=== PATIENT | male | born 1960 | race Caucasian/White ===

== ENCOUNTER 2017-02-06 12:28 | Emergency (ER) | payer MEDICARE, OTHER ==
[2017-02-06 14:48] LABS: HEMOGLOBIN 11.2 gm/dl (14.0-17.5); RED BLOOD COUNT 3.57 M/UL (4.20-5.50); WHITE BLOOD COUNT 6.9 K/UL (4.5-11.0)
[2017-02-07] MEDS ORDERED: NEURONTIN 400400 MG PO (08:07)
[2017-02-07] MEDS ORDERED: NORCO 10-325 T1 EACH PO (08:07)
[2017-02-07] MEDS ORDERED: ASPIRIN325 MG PO (08:08)
[2017-02-07] MEDS ORDERED: NORVASC 5 MG TAB5 MG PO (08:08)
[2017-02-07] MEDS ORDERED: CARVEDILOL12.5 MG PO (08:10)
[2017-02-07] MEDS ORDERED: CITALOPRAM HBR40 MG PO (08:10)
[2017-02-07] MEDS ORDERED: PLAVIX 75 MG TA75 MG PO (08:11)
[2017-02-07] MEDS ORDERED: CATAPRES 0.1MG0.1 MG PO (08:11)
[2017-02-07] MEDS ORDERED: LOPID TAB 600600 MG PO (08:12)
[2017-02-07] MEDS ORDERED: LASIX 40 MG TAB40 MG PO (08:12)
[2017-02-07] MEDS ORDERED: COLACE 100MG C100 MG PO (08:12)
[2017-02-07] MEDS ORDERED: HYDRALAZINE HCL50 MG PO (08:13)
[2017-02-07] MEDS ORDERED: GLUCOTROL 10 MG10 MG PO (08:13)
[2017-02-07] MEDS ORDERED: ISOSORBIDE MONO60 MG PO (08:14)
[2017-02-07] MEDS ORDERED: ZESTRIL10 MG PO (08:15)
[2017-02-07] MEDS ORDERED: OMEPRAZOLE20 MG PO (08:15)
[2017-02-07] MEDS ORDERED: RENO CAPS SOFTGE1 MG PO (08:16)
[2017-02-07] MEDS ORDERED: RENVELA800 MG PO (08:16)
[2017-02-07] MEDS ORDERED: SIMVASTATIN20 MG PO (08:17)
[2017-02-07] MEDS ORDERED: MIRTAZAPINE15 MG PO (08:18)
== END 2017-02-06 23:40 | disposition home or self-care (01) ==
LOC: ER1 12:28
PROVIDERS: Emergency Medicine
DX: T82.868A Thrombosis due to vascular prosthetic devices, implants and grafts, initial encounter (principal); I12.0 Hypertensive chronic kidney disease with stage 5 chronic kidney disease or end stage renal disease; E11.22 Type 2 diabetes mellitus with diabetic chronic kidney disease; N18.6 End stage renal disease; D64.9 Anemia, unspecified; E87.1 Hypo-osmolality and hyponatremia; M79.89 Other specified soft tissue disorders; M79.602 Pain in left arm
CPT/HCPCS: 36415; 80048; 85025; 85610; 85730; 86140; 93971; 99283

== ENCOUNTER → 2017-02-07 | Day surgery (SDC) | payer MEDICARE, OTHER ==
[~2017-02-07] MED LIST: ASPIRIN325 MG PO; CARVEDILOL12.5 MG PO; CATAPRES 0.1MG0.1 MG PO; CITALOPRAM HBR40 MG PO; COLACE 100MG C100 MG PO; GLUCOTROL 10 MG10 MG PO; HYDRALAZINE HCL50 MG PO; ISOSORBIDE MONO60 MG PO; LASIX 40 MG TAB40 MG PO; LOPID TAB 600600 MG PO; MIRTAZAPINE15 MG PO; NEURONTIN 400400 MG PO; NORCO 10-325 T1 EACH PO; NORVASC 5 MG TAB5 MG PO; OMEPRAZOLE20 MG PO; PLAVIX 75 MG TA75 MG PO; RENO CAPS SOFTGE1 MG PO; RENVELA800 MG PO; SIMVASTATIN20 MG PO; ZESTRIL10 MG PO
== END | disposition home or self-care (01) ==
LOC: OR 07:24
PROVIDERS: Surgery
PROC: B513YZA Fluoroscopy of Right Jugular Veins using Other Contrast, Guidance (ICD-10-PCS; 2017-02-07)
PROC: 05HM33Z Insertion of Infusion Device into Right Internal Jugular Vein, Percutaneous Approach (ICD-10-PCS; principal; 2017-02-07 09:35)
DX: E11.22 Type 2 diabetes mellitus with diabetic chronic kidney disease (principal); I12.0 Hypertensive chronic kidney disease with stage 5 chronic kidney disease or end stage renal disease; N18.6 End stage renal disease; I25.10 Atherosclerotic heart disease of native coronary artery without angina pectoris; K21.9 Gastro-esophageal reflux disease without esophagitis; F41.9 Anxiety disorder, unspecified; F32.9 Major depressive disorder, single episode, unspecified; F17.210 Nicotine dependence, cigarettes, uncomplicated; Z79.82 Long term (current) use of aspirin; Z79.899 Other long term (current) drug therapy; Z98.890 Other specified postprocedural states
CPT/HCPCS: 71010; 77001; 82962; C1752; C1769; J0690; J1644; J3370; J7030; J7120

== ENCOUNTER → 2020-12-06 | Outpatient (CLI) | payer MEDICARE, OTHER ==
[~2020-12-06] MED LIST changes: +ALDACTONE 25MG25 MG PO; +COMBIVENT RESPIM4 GM INH; +KEFLEX500 MG PO; +LEVEMIR FL100 UNIT/1 SQ; +LIPITOR40 MG PO; +MUPIROCIN22 GM TP; -NEURONTIN 400400 MG PO; +NEURONTIN100 MG PO; -NORCO 10-325 T1 EACH PO; +NORCO 7.5-3251 EACH PO; +REMERON15 MG PO
== END ==
LOC: CT 12:34
DX: R05 Cough (principal); I51.7 Cardiomegaly; J90 Pleural effusion, not elsewhere classified; K80.80 Other cholelithiasis without obstruction; R18.8 Other ascites
CPT/HCPCS: 71250; Q9963

== ENCOUNTER → 2021-02-02 | Outpatient (CLI) | payer MEDICARE, OTHER | LOC: HEART 5 10:47 | DX: R05 Cough (principal); R06.2 Wheezing | CPT/HCPCS: 94060; 94729 ==

== ENCOUNTER 2021-07-10 10:20 | Observation (INO) | payer MEDICARE, OTHER ==
[~2021-07-10] VITALS: Ht 177.8 cm; Wt 87.0 kg
[2021-07-10 10:53] LABS: HEMOGLOBIN 9.7 gm/dl (14.0-17.5); RED BLOOD COUNT 3.27 M/UL (4.20-5.50); WHITE BLOOD COUNT 8.6 K/UL (4.5-11.0)
[2021-07-10] MEDS ORDERED: FUROSEMIDE40 MG PO (14:56)
[2021-07-10] MEDS ORDERED: CRESTOR 10 MG T10 MG PO (15:03)
[2021-07-10] MEDS ORDERED: ANORO ELLIPTA1 EACH INH (15:05)
[2021-07-11 08:34] LABS: HEMOGLOBIN 9.8 gm/dl (14.0-17.5); RED BLOOD COUNT 3.3 M/UL (4.20-5.50)
[2021-07-11 08:42] LABS: WHITE BLOOD COUNT 12.2 K/UL (4.5-11.0)
[2021-07-12 03:24] LABS: HEMOGLOBIN 8.5 gm/dl (14.0-17.5)
[2021-07-12 03:35] LABS: RED BLOOD COUNT 2.88 M/UL (4.20-5.50); WHITE BLOOD COUNT 9.1 K/UL (4.5-11.0)
[2021-07-12 09:14] LABS: HBSAG SCREEN Negative (Negative); HEP B CORE AB, TOT Negative (Negative); HEP C VIRUS AB 0.1 (0.0-0.9)
--- NOTE | 2021-07-12 19:10 | NUR ---
CANNOT ASSESS PATIENT AT THIS TIME D/T PT BEING AT DIALYSIS.
--- NOTE | 2021-07-12 20:18 | NUR ---
PATIENT ON FLOR[facility] AT 2014. VITALS LEAVING DIALYSIS WERE REPORTED TO BE 122/66, HR 81, TEMP 98.5, RR 17. VITALS UPON ARRIVAL TO FLOOR, BP 113/72 (82), HR 84, 19 RR, 98.6 TEMP, O2 100%. MD AWARE OF PATIENT DISCHARGE AFTER DIALYSIS. PATIENT WILL BE EDUCATED AND WILL CALL FAMILY.
--- NOTE | 2021-07-12 21:58 | NUR ---
PATIENT LEFT FLOOR WITH STAFF TO MEET FAMILY IN ER AT 2130. VITALS UPON LEAVING WERE HR 82, O2 100% ON RA, RR 20, BP 113/73 (82) AND 98.5 TEMP.
== END 2021-07-12 21:30 | disposition home or self-care (01) ==
LOC: ER1 10:20 → PROG CARE 12:03 → CDU 12:03 → PROG CARE 14:41
PROVIDERS: Family Medicine; Internal Medicine; Internal Medicine Nephrology; Physician Assistant Medical; ADMIT Internal Medicine
DX: E11.649 Type 2 diabetes mellitus with hypoglycemia without coma (principal); J81.1 Chronic pulmonary edema; E87.70 Fluid overload, unspecified; E11.22 Type 2 diabetes mellitus with diabetic chronic kidney disease; N18.6 End stage renal disease; D63.1 Anemia in chronic kidney disease; N25.81 Secondary hyperparathyroidism of renal origin; I25.10 Atherosclerotic heart disease of native coronary artery without angina pectoris; I25.5 Ischemic cardiomyopathy; F17.210 Nicotine dependence, cigarettes, uncomplicated; K21.9 Gastro-esophageal reflux disease without esophagitis; Z95.1 Presence of aortocoronary bypass graft; Z99.2 Dependence on renal dialysis; Z79.4 Long term (current) use of insulin; Z79.02 Long term (current) use of antithrombotics/antiplatelets; Z79.82 Long term (current) use of aspirin; Z79.899 Other long term (current) drug therapy; Z20.822 Contact with and (suspected) exposure to COVID-19
CPT/HCPCS: ECHO; 36415; 36600; 70450; 71045; 80048; 80053; 82009; 82550; 82553; 82803; 82962; 83540; 83550; 83735; 83874; 83880; 84100; 84484; 85025; 85027; 86704; 86706; 86708; 86803; 87040; 87340; 90935; 90937; 93005; 93306; 94640; 94664; 94760; 96365; 96366; 96374; 96375; 96376; 99285; C9113; G0378; J1335; J1940; J2405; J2543; J2550; J2765; P9047; U0002

== ENCOUNTER → 2021-07-25 | Outpatient (CLI) | payer MEDICARE, OTHER ==
[~2021-07-25] MED LIST changes: +ANORO ELLIPTA1 EACH INH; +CRESTOR 10 MG T10 MG PO; +FUROSEMIDE40 MG PO
== END ==
LOC: KOH-I 08:00
DX: R18.8 Other ascites (principal)
CPT/HCPCS: 76705

== ENCOUNTER 2021-10-02 15:20 | Observation (INO) | payer MEDICARE, OTHER ==
[~2021-10-02] VITALS: Ht 177.8 cm; Wt 83.9 kg
[2021-10-02 16:28] LABS: HEMOGLOBIN 9.1 gm/dl (14.0-17.5); RED BLOOD COUNT 2.91 M/UL (4.20-5.50); WHITE BLOOD COUNT 7.2 K/UL (4.5-11.0)
[2021-10-02 20:48] LABS: HEMOGLOBIN 7.5 gm/dl (14.0-17.5)
[2021-10-03 06:15] LABS: HEMOGLOBIN 10.8 gm/dl (14.0-17.5)
[2021-10-03] MEDS ORDERED: ZOFRAN ODT 4 MG4 MG SL (06:56)
[2021-10-03 10:23] LABS: HEMOGLOBIN 10.9 gm/dl (14.0-17.5); WHITE BLOOD COUNT 8.3 K/UL (4.5-11.0)
[2021-10-03 10:24] LABS: RED BLOOD COUNT 3.56 M/UL (4.20-5.50)
[2021-10-03] MEDS ORDERED: ASPIRIN81 MG PO (13:54)
[2021-10-03] MEDS ORDERED: PROTONIX 40 MG40 M1 PO (13:54)
[2021-10-03] MEDS ORDERED: METOPROLOL TART25 MG PO (13:55)
[2021-10-04 09:26] LABS: HEMOGLOBIN 11.3 gm/dl (14.0-17.5); RED BLOOD COUNT 3.64 M/UL (4.20-5.50); WHITE BLOOD COUNT 10.4 K/UL (4.5-11.0)
[2021-10-04] MEDS ORDERED: AMIODARONE HCL200 MG PO (16:33)
== END 2021-10-04 18:40 | disposition home or self-care (01) ==
LOC: ER1 15:20 → CDU 10-03 11:43 → MED SURG 4 10-03 11:43
PROVIDERS: Emergency Medicine; Family Medicine; Physician Assistant; ADMIT Internal Medicine
DX: T82.838A Hemorrhage due to vascular prosthetic devices, implants and grafts, initial encounter (principal); D62 Acute posthemorrhagic anemia; I13.2 Hypertensive heart and chronic kidney disease with heart failure and with stage 5 chronic kidney disease, or end stage renal disease; E11.22 Type 2 diabetes mellitus with diabetic chronic kidney disease; N18.6 End stage renal disease; I50.22 Chronic systolic (congestive) heart failure; D63.1 Anemia in chronic kidney disease; I48.0 Paroxysmal atrial fibrillation; I25.5 Ischemic cardiomyopathy; K21.9 Gastro-esophageal reflux disease without esophagitis; I44.7 Left bundle-branch block, unspecified; I25.10 Atherosclerotic heart disease of native coronary artery without angina pectoris; F17.210 Nicotine dependence, cigarettes, uncomplicated; R11.2 Nausea with vomiting, unspecified; E87.6 Hypokalemia; R03.1 Nonspecific low blood-pressure reading; I08.1 Rheumatic disorders of both mitral and tricuspid valves; Z20.822 Contact with and (suspected) exposure to COVID-19; Z99.2 Dependence on renal dialysis; Z95.1 Presence of aortocoronary bypass graft; Z95.810 Presence of automatic (implantable) cardiac defibrillator; Z95.5 Presence of coronary angioplasty implant and graft; Z79.82 Long term (current) use of aspirin; Z79.02 Long term (current) use of antithrombotics/antiplatelets; Z79.899 Other long term (current) drug therapy; Y83.2 Surgical operation with anastomosis, bypass or graft as the cause of abnormal reaction of the patient, or of later complication, without mention of misadventure at the time of the procedure
CPT/HCPCS: 36415; 36430; 36600; 73060; 80053; 82800; 82962; 85014; 85018; 85025; 86850; 86900; 86901; 86920; 93005; 96365; 96366; 96375; 96376; 99285; C9113; G0378; J1170; J1940; J2405; J2550; J3370; J7030; J7050; P9016; U0002

== ENCOUNTER 2021-10-06 12:30 | Inpatient (IN) | payer MEDICARE, OTHER ==
[~2021-10-06] VITALS: Ht 177.8 cm; Wt 83.9 kg
[~2021-10-06 12:30] MED LIST changes: +AMIODARONE HCL200 MG PO; +ASPIRIN81 MG PO; +METOPROLOL TART25 MG PO; +PROTONIX 40 MG40 M1 PO; +ZOFRAN ODT 4 MG4 MG SL
[2021-10-06 14:35] LABS: HEMOGLOBIN 10.4 gm/dl (14.0-17.5); RED BLOOD COUNT 3.35 M/UL (4.20-5.50)
[2021-10-06 14:36] LABS: WHITE BLOOD COUNT 7.2 K/UL (4.5-11.0)
[2021-10-07 07:59] LABS: HEMOGLOBIN 10.6 gm/dl (14.0-17.5); RED BLOOD COUNT 3.54 M/UL (4.20-5.50); WHITE BLOOD COUNT 6.4 K/UL (4.5-11.0)
--- NOTE | 2021-10-07 08:09 | NUR ---
PATIENT LEFT FOR OR AT THIS TIME.
[2021-10-08 06:38] LABS: WHITE BLOOD COUNT 7.7 K/UL (4.5-11.0)
[2021-10-08 06:40] LABS: HEMOGLOBIN 8.5 gm/dl (14.0-17.5); RED BLOOD COUNT 2.72 M/UL (4.20-5.50)
== END 2021-10-08 19:17 | disposition home or self-care (01) | DRG 314 ==
LOC: ER1 12:30 → CDU 17:15 → MED SURG 4 17:15
PROVIDERS: Internal Medicine; Physician Assistant; Surgery; ADMIT Internal Medicine
PROC: 05HN33Z Insertion of Infusion Device into Left Internal Jugular Vein, Percutaneous Approach (ICD-10-PCS; 2021-10-07)
PROC: 5A1D70Z Performance of Urinary Filtration, Intermittent, Less than 6 Hours Per Day (ICD-10-PCS; 2021-10-07)
PROC: 0JH63XZ Insertion of Tunneled Vascular Access Device into Chest Subcutaneous Tissue and Fascia, Percutaneous Approach (ICD-10-PCS; principal; 2021-10-07 08:18)
DX: T82.898A Other specified complication of vascular prosthetic devices, implants and grafts, initial encounter (principal); N18.6 End stage renal disease; I13.2 Hypertensive heart and chronic kidney disease with heart failure and with stage 5 chronic kidney disease, or end stage renal disease; I50.22 Chronic systolic (congestive) heart failure; J90 Pleural effusion, not elsewhere classified; N25.81 Secondary hyperparathyroidism of renal origin; I25.5 Ischemic cardiomyopathy; I48.0 Paroxysmal atrial fibrillation; I44.7 Left bundle-branch block, unspecified; K21.9 Gastro-esophageal reflux disease without esophagitis; D63.1 Anemia in chronic kidney disease; E87.6 Hypokalemia; I08.1 Rheumatic disorders of both mitral and tricuspid valves; F17.200 Nicotine dependence, unspecified, uncomplicated; Y83.8 Other surgical procedures as the cause of abnormal reaction of the patient, or of later complication, without mention of misadventure at the time of the procedure; I25.10 Atherosclerotic heart disease of native coronary artery without angina pectoris; Z99.2 Dependence on renal dialysis; Z95.1 Presence of aortocoronary bypass graft; Z95.810 Presence of automatic (implantable) cardiac defibrillator; Z79.4 Long term (current) use of insulin; Z79.82 Long term (current) use of aspirin; Z79.899 Other long term (current) drug therapy; Z83.3 Family history of diabetes mellitus
CPT/HCPCS: 36415; 36430; 36600; 71045; 73060; 77001; 80053; 82550; 82553; 82800; 82962; 83874; 84484; 85014; 85018; 85025; 85027; 86850; 86900; 86901; 86920; 90935; 93005; 96365; 96366; 96375; 96376; 99285; C1750; C1788; C9113; G0378 ×2; J0690; J1100; J1170; J1642; J1940; J2001; J2370; J2405; J2550; J2704; J3370; J7030; J7050; P9016; U0002